=== PATIENT | male | born 1985 | race American Indian/Alaskan Native ===

== ENCOUNTER 2017-10-26 08:15 | Emergency (ER) | payer BC, OTHER ==
--- NOTE | 2017-10-26 08:41 | ED PDOC ---
HPI: Back Time Seen by Provider: 10/26/17 08:27 Chief Complaint (Nursing): Back Pain Chief Complaint (Provider): Back Pain History Per: Patient History/Exam Limitations: no limitations Onset/Duration Of Symptoms: Sudden Onset Current Symptoms Are (Timing): Still Present Additional Complaint(s): 32 y/o male with no significant PMHx presents for evaluation of lower back pain x1 day. Patient states he works at a [employer] and says today he was attempting to release some cable under tension which required torquing with his arms and back and reports he had sudden pain to his bilateral lower back radiating to his mid thoracic area. He denies any direct trauma or fall. He denies weakness, numbness, or difficulty walking. He also denies taking any medication for his pain. He reports occasional back pain after a hard day at work, but denies any other recent injuries. PMD: None provided Past Medical History Reviewed: Historical Data, Nursing Documentation, Vital Signs Vital Signs: Last Vital Signs Temp 97.8 F 10/26/17 08:20 Pulse 52 L 10/26/17 08:20 Resp 20 10/26/17 08:20 BP 131/87 10/26/17 08:20 Pulse Ox 97 10/26/17 08:20 - Medical History PMH: No Chronic Diseases - Surgical History Surgical History: No Surg Hx - Family History Family History: States: Unknown Family Hx - Social History Current smoker - smoking cessation education provided: No Alcohol: None Drugs: Cannabis - Home Medications Home Medications: Ambulatory Orders Medication Instructions Recorded Cyclobenzaprine [Cyclobenzaprine 10 mg PO Q8 PRN #9 tab 10/26/17 HCl] Ibuprofen [Motrin Tab] 600 mg PO Q6 PRN #15 tab 10/26/17 - Allergies Allergies/Adverse Reactions: Allergies Allergy/AdvReac Type Severity Reaction Status Date / Time No Known Allergies Allergy Verified 11/15/14 13:27 Review of Systems ROS Statement: Except As Marked, All Systems Reviewed And Found Negative Musculoskeletal: Positive for: Back Pain Neurological: Negative for: Weakness, Numbness, Other (difficulty walking) Physical Exam - Reviewed Nursing Documentation Reviewed: Yes Vital Signs Reviewed: Yes - Physical Exam Appears: Positive for: Non-toxic, No Acute Distress Head Exam: Positive for: ATRAUMATIC, NORMAL INSPECTION, NORMOCEPHALIC Skin: Positive for: Normal Color, Warm, Dry Eye Exam: Positive for: EOMI, Normal appearance, PERRL ENT: Positive for: Normal ENT Inspection Neck: Positive for: Normal, Painless ROM, Supple Cardiovascular/Chest: Positive for: Regular Rate, Rhythm Respiratory: Positive for: Normal Breath Sounds. Negative for: Respiratory Distress Gastrointestinal/Abdominal: Positive for: Normal Exam, Soft. Negative for: Tenderness Back: Positive for: Other (bilateral lower lumbar hypertonicity, no midline tenderness). Negative for: Vertebral Tenderness Extremity: Positive for: Normal ROM Neurologic/Psych: Positive for: Alert, Oriented, Gait (steady). Negative for: Motor/Sensory Deficits - ECG O2 Sat by Pulse Oximetry: 97 (RA) Pulse Ox Interpretation: Normal Medical Decision Making Medical Decision Makin:33 Plan: Will start on Toradol and Flexeril. 09:55 Tylenol 650mg administered. 10:28 Upon reevaluation, patients condition has improved. Patient wishes to be discharged at this time. Rx provided and instructions explained. Patient is neurologically intact and gait is normal at time of discharge. Scribe Attestation: Documented by Stanislav Fink, acting as a scribe for Jamin Godwin III, DO. Provider Scribe Attestation: All medical record entries made by the Scribe were at my direction and personally dictated by me. I have reviewed the chart and agree that the record accurately reflects my personal performance of the history, physical exam, medical decision making, and the department course for this patient. I have also personally directed, reviewed, and agree with the discharge instructions and disposition. Disposition - Clinical Impression Clinical Impression: Back strain - Patient ED Disposition Is Patient to be Admitted: No Counseled Patient/Family Regarding: Diagnosis, Need For Followup, Rx Given - Disposition Referrals: [facility] [Outside] Disposition: Routine/Home Disposition Time: 10:28 Condition: STABLE Additional Instructions: Return to ER for any worse or new symptoms. Take medications as directed. Muscle relaxants may cause drowsiness, do not drive or operate machinery while taking. Prescriptions: Cyclobenzaprine [Cyclobenzaprine HCl] 10 mg PO Q8 PRN #9 tab PRN Reason: Muscle Spasm Ibuprofen [Motrin Tab] 600 mg PO Q6 PRN #15 tab PRN Reason: Pain, Moderate (4-7) Instructions: Muscle Strain (DC), Back Exercises Forms: [facility] [place] [facility] ([place]), [facility] ED School/Work Excuse
[2017-10-26 10:34] VITALS: BP 121/70; PULSE 63; RESP 18; TEMP 98
[2017-10-26 10:35] VITALS: O2SAT 97
== END 2017-10-26 10:33 | disposition home or self-care (01) ==
LOC: H.ER 08:15
DX: S39.012A Strain of muscle, fascia and tendon of lower back, initial encounter (principal); X50.9XXA Other and unspecified overexertion or strenuous movements or postures, initial encounter; Y99.0 Civilian activity done for income or pay
CPT/HCPCS: 96372; 99282; J1885